=== PATIENT | female | born 1980 | race Caucasian/White ===

== ENCOUNTER 2022-06-16 16:04 | Emergency (ER) | payer OTHER, SELFPAY ==
--- NOTE | ~2022-06-16 | XR_ITS ---
EXAMINATION: XR HUMERUS, RIGHT CLINICAL INFORMATION: Foreign body. Dog bite upper arm. COMPARISON: None TECHNIQUE: AP and lateral views of the right humerus. FINDINGS: There is a bandage over the mid upper arm. No radiopaque foreign body. No air in the soft tissue. No osseous abnormality. Humerus normal. The shoulder and elbow joints are unremarkable XR/XR humerus RT IMPRESSION: No radiopaque foreign body.
[2022-06-16 16:10] VITALS: BP 130/70; PULSE 94; O2SAT 97
[2022-06-16 16:45] VITALS: BP 118/77; PULSE 84; RESP 18; TEMP 36.9; O2SAT 97; BMI 26.7
[2022-06-16] MEDS: Ibuprofen 600 MG TABLET PO (16:56)
--- NOTE | 2022-06-16 19:05 | ED_ITS ---
HPI - Animal Bite General Chief Complaint: Animal Bite <Denise Olivas CNP - Last Filed: 06/17/22 01:09> Stated Complaint: dog bite <Denise Olivas CNP - Last Filed: 06/17/22 01:09> Time Seen by Provider: 06/16/22 17:42 <ANKUR Cabello Last Filed: 06/17/22 01:09> Source: patient <Denisestorm Allan ANKUR Olivas - Last Filed: 06/17/22 01:09> Mode of arrival: ambulatory <ANKUR Cabello Last Filed: 06/17/22 01:09> Limitations: no limitations <Denise Olivas CNP Stephon Last Filed: 06/17/22 01:09> History of Present Illness HPI narrative: Patient presents emergency department for evaluation after a dog bite sust ained earlier today. 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 It is painful and tender. Bleeding currently controlled. She states there is tissue, had the laceration. All the dog is unknown to her, but police were involved, and reportedly the dog is up-to-date on vaccines, and is currently healthy by the owners report. She states she has not had a tetanus vaccine within the last 5 years. <ANKUR Cabello Last Filed: 06/17/22 01:09> Related Data Home Medications: Previous Rx's Medication Instructions Recorded amoxicillin 875 mg-potassium 1 tab PO Q12H 7 days #14 tabs 06/16/22 clavulanate 125 mg tablet <ANKUR Cabello Last Filed: 06/17/22 01:09> Allergies/Adverse Reactions: Allergies Allergy/AdvReac Type Severity Reaction Status Date / Time No Known Allergies Allergy Verified 06/16/22 16:51 [No Known Allergies*] <ANKUR Cabello Last Filed: 06/17/22 01:09> Review of Systems Review of Systems: Skin: Animal bite <ANKUR Cabello Last Filed: 06/17/22 01:09> Yes all other systems are reviewed and are negative <ANKUR Cabello Last Filed: 06/17/22 01:09> [facility] Past Medical History Attestation statement: The following information was validated with the patient. <Denise Olivas CNP - Last Filed: 06/17/22 01:09> Source: old records reviewed <Denise Olivas CNP - Last Filed: 06/17/22 01:09> Social History Social History: Social History Advance Directives: No Advance Directives Information Provided: No <Denise Olivas CNP - Last Filed: 06/17/22 01:09> Physical Exam ED Vital Signs: Vital Signs - 24 hr 06/16/22 16:45 Temperature 98.4 F Pulse Rate 84 Respiratory Rate 18 Blood Pressure 118/77 Pulse Oximetry 97 Oxygen Delivery Method Room Air BMI result Body Mass Index 26.7 <Denise Olivas CNP - Last Filed: 06/17/22 01:09> Vital Signs - 24 hr 06/16/22 16:45 Temperature 98.4 F Pulse Rate 84 Respiratory Rate 18 Blood Pressure 118/77 Pulse Oximetry 97 Oxygen Delivery Method Room Air BMI result Body Mass Index 26.7 <Matthew Cooper MD - Last Filed: 06/16/22 19:26> Appearance: Alert.?Oriented to person, place and time. No acute distress.?Normal affect. Eyes: Pupils equal, round and reactive to light.? ENT: Pharynx normal.?? Neck: Normal inspection.? Neck supple.?? CVS: Heart sounds normal. Normal heart rate and rhythm.? Pulses normal.?? Respiratory: No respiratory distress.? Lung sounds clear to auscultation bilaterally?? Abdomen: Soft and non-tender. Skin: Skin warm and dry.? Normal skin color.? Laceration to right upper arm, bleeding controlled, subcutaneous fat exposed Extremities: No lower extremity edema.? Neuro: Moves all extremities spontaneously. Sensation intact bilaterally. No motor deficits Ambulates with normal steady gait. <Denise Olivas CNP - Last Filed: 06/17/22 01:09> Course Course Course Narrative: Patient is a 42-year-old female presents emergency department for evaluation after a dog bite. Extremities neurovascularly intact distally. 1 cm laceration to right upper arm cleanse with normal saline irrigated extensively, 2 sutures placed loosely approximated the edges. Discussed plan of care for discharge home, Augmentin x1 week, suture removal in 8-10 days with PCP or in emergency department, discussed signs of infection/ worsening signs and symptoms to return back to the emergency department for. Tetanus vaccine updated while in the emergency department. Declined rabies vaccination. <Denise Olivas CNP - Last Filed: 06/17/22 01:09> Reevaluation(s) Reevaluation #1: The wound is more gaping and needs to be loosely approximated, with have ENTRY ANALYST Barcome loosely approximate after irrigation and will dc on antibiotics <Matthew Cooper MD - Last Filed: 06/16/22 19:26> Time: 19:26 <Matthew Cooper MD - Last Filed: 06/16/22 19:26> MDM - Animal Bite Medical Records Attestation: I reviewed the patient's medical records. <Denise Olivas CNP - Last Filed: 06/17/22 01:09> Imaging Data XR humerus: Radiologist's impression: FINDINGS: There is a bandage over the mid upper arm. No radiopaque foreign body. No air in the soft tissue. No osseous abnormality. Humerus normal. The shoulder and elbow joints are unremarkable? XR/XR humerus RT IMPRESSION: No radiopaque foreign body. <Denise Olivas CNP - Last Filed: 06/17/22 01:09> Procedures Laceration Laceration 1: Site: upper extremity <Denise Olivas CNP - Last Filed: 06/17/22 01:09> Side (If applicable): right <Denise Olivas CNP - Last Filed: 06/17/22 01:09> Size (cm): 1 <Denise Olivas CNP - Last Filed: 06/17/22 01:09> Description: linear <Denise Olivas CNP - Last Filed: 06/17/22 01:09> Depth: simple, single layer <Denise Olivas CNP - Last Filed: 06/17/22 01:09> Local Anesthetic: lidocaine 1% <Denise Olivas CNP - Last Filed: 06/17/22 01:09> Amount of anesthesia used (mL): 2 <Denise Olivas CNP - Last Filed: 06/17/22 01:09> Pre-repair: wound explored, irrigated extensively and deep structures intact <Denise Olivas CNP Last Filed: 06/17/22 01:09> Skin layer closed with: nylon <Denise Olivas CNP - Last Filed: 06/17/22 01:09> Size (cm): 5-0 <Denisestorm Olivas CNP Last Filed: 06/17/22 01:09> Number of sutures: 2 <Denise Olivas CNP Last Filed: 06/17/22 01:09> Technique: simple, interrupted <Denisestorm Olivas CNP Last Filed: 06/17/22 01:09> Discharge Plan Discharge Clinical Impression: Dog bite <Denise Olivas CNP Last Filed: 06/17/22 01:09> Patient Disposition: Home, Self-Care <Denisestorm Olivas CNP Last Filed: 06/17/22 01:09> Additional Instructions: You have been given a course of antibiotics, please complete this entire course If you develop redness, swelling, increased drainage, pus, fevers, chills this should be re-evaluated. 2 Stitches to your arm will need to be removed in 8-10 days. This may be done at your primary care provider's office or you may return to the emergency department. Follow-up with your primary care provider as needed <Denise Olivas CNP - Last Filed: 06/17/22 01:09> Prescriptions: New amoxicillin-pot clavulanate 875-125 mg tablet 1 tab PO Q12H 7 Days Qty: 14 0RF <Denise Olivas CNP Last Filed: 06/17/22 01:09> Stand Alone Forms: Work/School Release <Denise Olivas CNP Last Filed: 06/17/22 01:09> Discharge Date/Time: 06/16/22 20:50 <Denise Olivas CNP - Last Filed: 06/17/22 01:09>
[2022-06-16] MEDS: Diphth,Pertus(ACell),Tet Adult 0.5 ML SYRINGE IM (20:09)
[2022-06-16] MEDS: Lidocaine HCl 1 % MPF 2 ML VIAL SUBCUT (20:09)
== END 2022-06-16 20:50 | disposition home or self-care (01) ==
PROVIDERS: Emergency Provider Emergency Medicine
DX: S41.151A Open bite of right upper arm, initial encounter (principal); W54.0XXA Bitten by dog, initial encounter; Y93.89 Activity, other specified; Y92.017 Garden or yard in single-family (private) house as the place of occurrence of the external cause; Y99.0 Civilian activity done for income or pay
CPT/HCPCS: 12001; 73060; 90471; 90715; 99282; 99284

== ENCOUNTER 2023-02-09 16:40 | Emergency (ER) | payer OTHER, SELFPAY ==
--- NOTE | ~2023-02-09 | XR_ITS ---
EXAMINATION: XR ANKLE, RIGHT CLINICAL INFORMATION: Pain post fall COMPARISON: None available. TECHNIQUE: AP, lateral, and mortise views of the right ankle. FINDINGS: No significant soft tissue swelling. Bones are normal anatomic alignment with no acute fracture or dislocation about the ankle. Incidental well-corticated os perineum noted. XR/XR ankle RT min 3V IMPRESSION: No acute fracture or dislocation.
[2023-02-09 17:13] VITALS: BP 134/72; PULSE 80; RESP 16; TEMP 36.8; O2SAT 98; BMI 25.7
--- NOTE | 2023-02-09 17:13 | ED.LOWEXIN ---
HPI - Extremity Injury (Lower) General Chief Complaint: Extremity Injury, Lower <KAYLYNN Nguyễn Last Filed: 02/09/23 17:14> Stated Complaint: fell at work/ right ankle injury <KAYLYNN Nguyễn Last Filed: 02/09/23 17:14> Time Seen by Provider: 02/09/23 17:46 <KAYLYNN Nguyễn Last Filed: 02/09/23 17:14> Source: patient and RN notes reviewed <KAYLYNN Andrew Last Filed: 02/09/23 18:41> Mode of arrival: ambulatory <KAYLYNN Andrew Last Filed: 02/09/23 18:41> Limitations: no limitations <KAYLYNN Andrew Last Filed: 02/09/23 18:41> History of Present Illness HPI Narrative: This is a 42-year-old female who presents to the emergency department today with complaints of right ankle pain since today. 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 Patient reports that she immediately felt pain in her right ankle. Patient reports that she is able to bear weight however reports that this causes her to have pain. Patient reports that she took ibuprofen about 1 hour ago which provided her with some relief. She reports that she has injured one of her ankles in the past, she is not sure which she injured. Was denies hitting her head or LOC during this fall. No numbness or tingling. No other complaints or concerns at this time. <KAYLYNN Andrew Last Filed: 02/09/23 18:41> MD complaint: ankle injury <KAYLYNN Andrew Last Filed: 02/09/23 18:41> Onset (ago): hour(s) <KAYLYNN Andrew Last Filed: 02/09/23 18:41> Type of Injury: inversion <KAYLYNN Andrew Last Filed: 02/09/23 18:41> Place: work <KAYLYNN Andrew Last Filed: 02/09/23 18:41> Severity: moderate <KAYLYNN Andrew Last Filed: 02/09/23 18:41> Relieving factors: nothing <KAYLYNN Andrew Last Filed: 02/09/23 18:41> Exacerbating factors: nothing <KAYLYNN Andrew Last Filed: 02/09/23 18:41> Context: fall <KAYLYNN Andrew Last Filed: 02/09/23 18:41> Associated symptoms: able to partially bear weight <KAYLYNN Andrew Last Filed: 02/09/23 18:41> Other symptoms: none <KAYLYNN Andrew Last Filed: 02/09/23 18:41> Related Data Home Medications: Previous Rx's Medication Instructions Recorded amoxicillin 875 mg-potassium 1 tab PO Q12H 7 days #14 tabs 06/16/22 clavulanate 125 mg tablet ibuprofen 600 mg tablet 600 mg PO Q6H PRN pain #60 tabs 02/09/23 <KAYLYNN Nguyễn Last Filed: 02/09/23 17:14> Allergies/Adverse Reactions: Allergies Allergy/AdvReac Type Severity Reaction Status Date / Time No Known Allergies Allergy Verified 06/16/22 16:51 [No Known Allergies*] <KAYLYNN Nguyễn Last Filed: 02/09/23 17:14> Review of Systems Review of Systems: Yes all other systems are reviewed and are negative <KAYLYNN Andrew - Last Filed: 02/09/23 18:41> [facility] Social History Social History: Social History Advance Directives: No Advance Directives Information Provided: No <KAYLYNN Ngyuễn Last Filed: 02/09/23 17:14> Physical Exam Vital Signs: Vital Signs: Last Vital Signs Temp 98.2 F 02/09/23 17:13 Pulse 80 02/09/23 17:13 Resp 16 02/09/23 17:13 BP 134/72 02/09/23 17:13 Pulse Ox 98 02/09/23 17:13 O2 Del Method Room Air 02/09/23 17:13 BMI result Body Mass Index 25.7 <KAYLYNN Nguyễn Last Filed: 02/09/23 17:14> Vital Signs: Last Vital Signs Temp 98.2 F 02/09/23 17:13 Pulse 80 02/09/23 17:13 Resp 16 02/09/23 17:13 BP 134/72 02/09/23 17:13 Pulse Ox 98 02/09/23 17:13 O2 Del Method Room Air 02/09/23 17:13 BMI result Body Mass Index 25.7 <KAYLYNN Andrew Last Filed: 02/09/23 18:41> General: Awake, alert, and oriented X3. No acute distress. HEENT: Normal inspection CVS: Normal heart rate and rhythm. Pulses normal. Respiratory: No respiratory distress Skin: Warm, dry, no rashes noted to exposed skin. Normal skin color. Normal skin turgor. Extremities: Right ankle is non-tender over the lateral or medial mallelous. Mild edema overlying the right lateral mallelous, with moderate ecchymosis noted inferior to the right lateral mallelous. No tenderness overlying the fifth metatarsal. No tenderness to palpation overlying the metatarsals. Limited dorsi and plantar flexion secondary to pain. Sensation intact. Pedal pulses 2+. Neuro: Oriented X 3. No motor deficit. No sensory deficit. 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 She is ambulatory. She has pain on the medial and lateral aspects of the ankle. Plan: ankle x-rays <KAYLYNN Nguyễn Last Filed: 02/09/23 17:14> Medical Decision Making Medical Decision Making MDM Narrative: 42-year-old female presents to the emergency department for evaluation of right ankle pain since today. Patient reports that she inverted her right ankle while delivering a package at her work today. Right ankle and foot x-rays obtained and were unremarkable. Right foot and ankle placed in James wrap and given crutches. Patient given a prescription for ibuprofen and advised to rest, ice, and elevate ankle and foot. VSS, patient appears comfortable in no acute distress. Stable to discharge. <KAYLYNN Andrew Last Filed: 02/09/23 18:41> Differential Diagnosis Differential Diagnoses: The differential diagnosis associated with the presentation includes <KAYLYNN Andrew Last Filed: 02/09/23 18:41> Right ankle pain, strain, sprain, fracture. <KAYLYNN Andrew - Last Filed: 02/09/23 18:41> Independent Interpretation I performed an independent interpretation of an: Plain X-Ray <KAYLYNN Andrew - Last Filed: 02/09/23 18:41> Radiology Impression Discussion of test interpretation with radiology: I have reviewed the radiologist's reading. <KAYLYNN Andrew - Last Filed: 02/09/23 18:41> Radiologist Impression: EXAMINATION: XR ANKLE, RIGHT CLINICAL INFORMATION: Pain post fall? COMPARISON: None available.? TECHNIQUE: AP, lateral, and mortise views of the right ankle. FINDINGS: No significant soft tissue swelling. Bones are normal anatomic alignment with no acute fracture or dislocation about the ankle. Incidental well-corticated os perineum noted.? XR/XR ankle RT min 3V IMPRESSION: No acute fracture or dislocation. ? Dictated By: Ethan Livingston MD <KAYLYNN Andrew - Last Filed: 02/09/23 18:41> Discharge Plan Discharge Clinical Impression: Ankle sprain and strain <KAYLYNN Nguyễn - Last Filed: 02/09/23 17:14> Patient Disposition: Home, Self-Care <KAYLYNN Nguyễn - Last Filed: 02/09/23 17:14> Instructions: Ankle Sprain (ED), Crutch Instructions (ED), R.I.C.E. Treatment (ED) <KAYLYNN Nguyễn Last Filed: 02/09/23 17:14> Additional Instructions: Your x-rays performed today showed no fracture. Rest, ice, wear james wrap, and elevate right ankle and foot. Use crutches for the next several days until you are able to bear weight without pain. Take ibuprofen and Tylenol as directed as needed for pain. Gentle stretching and exercises will help strengthen the right ankle. If any new or worsening symptoms occur, please return for re-evaluation. <KAYLYNN Nguyễn - Last Filed: 02/09/23 17:14> Prescriptions: New ibuprofen 600 mg tablet 600 mg PO Q6H PRN (Reason: pain) Qty: 60 0RF No Action amoxicillin-pot clavulanate 875-125 mg tablet 1 tab PO Q12H 7 Days Qty: 14 0RF <KAYLYNN Nguyễn - Last Filed: 02/09/23 17:14> Stand Alone Forms: Work/School Release <KAYLYNN Nguyễn - Last Filed: 02/09/23 17:14> Interventions: ED Discharge Assessment Last Done: 02/09/23 18:32 <KAYLYNN Nguyễn - Last Filed: 02/09/23 17:14>
== END 2023-02-09 18:47 | disposition home or self-care (01) ==
PROVIDERS: Emergency Provider Emergency Medicine; PCP Internal Medicine
DX: S93.401A Sprain of unspecified ligament of right ankle, initial encounter (principal); W10.9XXA Fall (on) (from) unspecified stairs and steps, initial encounter; Y93.9 Activity, unspecified; Y92.9 Unspecified place or not applicable; Y99.0 Civilian activity done for income or pay
CPT/HCPCS: 73610; 99282; 99283